=== PATIENT | male | born 1980 | race Caucasian/White ===

== ENCOUNTER 2019-11-09 08:43 | Inpatient (IN) | payer OTHER ==
--- NOTE | 2019-11-09 09:00 | HP ---
CIWA Score - Admission Criteria [facility] Guidelines: Admission for Medically Managed Detox: Requires at least one of the followin. CIWA greater than 12 2. Seizures within the past 24 hours 3. Delirium tremens within the past 24 hours 4. Hallucinations within the past 24 hours 5. Acute intervention needed for co occurring medical disorder 6. Acute intervention needed for co occurring psychiatric disorder 7. Severe withdrawal that cannot be handled at a lower level of care (continued vomiting, continued diarrhea, abnormal vital signs) requiring intravenous medication and/or fluids 8. Admitting History and Physical - Admission Chief Complaint: " I want to go to rehab." History of Present Illness: 39 year old male with history opioid dependence on [facility] O[facility] in [place] on methadone 100mg daily there. He is using Crack/cocaine smoking 1-2 grams daily but no other substances of abuse. He is seeking rehab services. He also smokes 1ppd ciggarettes since age 11 years old. He is homeless and has no support systems. He is not in the nursing home system because he was kicked out. He has [facility] still. He has poor judgment and poor support systems in place. He has also failed many other treatment inpatient in detox and rehab. PMH: None Psych: Depression and Anxiety and stopped taking wellbutrin and remeron non- compliant for 3 years. History Source: Patient Limitations to Obtaining History: No Limitations - Past Surgical History Past Surgical History: Yes: None - Smoking History Smoking history: Current every day smoker Have you smoked in the past 12 months: Yes Aproximately how many cigarettes per day: 20 - Alcohol/Substance Use Hx Alcohol Use: No - Social History Usual Living Arrangement: Yes: With Significant Other Do you think of yourself as: Straight/Heterosexual ADL: Independent Occupation: unemployed History of Recent Travel: No Admission ROS [facility] Allergies/Adverse Reactions: Allergies Allergy/AdvReac Type Severity Reaction Status Date / Time No Known Allergies Allergy Verified 05/08/18 15:36 Exam Limitations: No Limitations - Ebola screening Have you traveled outside of the country in the last 21 days: No Have you had contact with anyone from an Ebola affected area: No Have you been sick,other than usual withdrawal symptoms: No Do you have a fever: No - Review of Systems Constitutional: Unintentional Wgt. Loss EENT: reports: No Symptoms Reported Respiratory: reports: No Symptoms reported Cardiac: reports: No Symptoms Reported GI: reports: No Symptoms Reported : reports: No Symptoms Reported Musculoskeletal: reports: No Symptoms Reported Integumentary: reports: No Symptoms Reported Neuro: reports: No Symptoms reported Endocrine: reports: No Symptoms Reported Hematology: reports: No Symptoms Reported Psychiatric: reports: Judgement Intact, Mood/Affect Appropiate, Orientated x3, Anxious Other Systems: Reviewed and Negative Patient History - Patient Medical History Hx Anemia: No Hx Asthma: No Hx Chronic Obstructive Pulmonary Disease (COPD): No Hx Cancer: No Hx Cardiac Disorders: No Hx Congestive Heart Failure: No Hx Hypertension: No Hx Hypercholesterolemia: No Hx Pacemaker: No HX Cerebrovascular Accident: No Hx Seizures: No Hx Dementia: No Hx Diabetes: No Hx Gastrointestinal Disorders: No Hx Liver Disease: No Hx Genitourinary Disorders: No Hx Sexually Transmitted Disorders: No Hx Renal Disease (ESRD): No Hx Thyroid Disease: No Hx Human Immunodeficiency Virus (HIV): No Hx Hepatitis C: No Hx Depression: No Hx Suicide Attempt: No Hx Bipolar Disorder: No Hx Schizophrenia: No - Patient Surgical History Past Surgical History: No Hx Neurologic Surgery: No Hx Cataract Extraction: No Hx Cardiac Surgery: No Hx Lung Surgery: No Hx Breast Surgery: No Hx Breast Biopsy: No Hx Abdominal Surgery: No Hx Appendectomy: No Hx Cholecystectomy: No Hx Genitourinary Surgery: No Hx Orthopedic Surgery: No Anesthesia Reaction: No - PPD History Previous Implant?: Yes Documented Results: Negative w/proof Implanted On Prior [facility] Admission?: Yes Date: 05/10/18 Results: negative PPD to be Administered?: Yes - Smoking Cessation Smoking history: Current every day smoker Have you smoked in the past 12 months: Yes Aproximately how many cigarettes per day: 20 Hx Chewing Tobacco Use: No Initiated information on smoking cessation: Yes 'Breaking Loose' booklet given: 11/09/19 - Substances abused Crack Substance route: Smoking Frequency: Daily Amount used: 1-2 grams daily Age of first use: 11 Date of last use: 11/09/19 Admission Physical Exam [facility] - Physical General Appearance: Yes: Disheveled HEENTM: Yes: EOMI, Hearing grossly Normal, Normal ENT Inspection, Normocephalic , Normal Voice, DONITA, Pharynx Normal, Tm's normal Respiratory: Yes: Chest Non-Tender, Lungs Clear, Normal Breath Sounds, No Respiratory Distress, No Accessory Muscle Use Neck: Yes: No masses,lesions,Nodules, Supple, Trachea in good position Breast: Yes: Within Normal Limits Cardiology: Yes: Regular Rhythm, Regular Rate, S1, S2 Abdominal: Yes: Normal Bowel Sounds, Non Tender, Flat, Soft Genitourinary: Yes: Within Normal Limits Back: Yes: Normal Inspection Musculoskeletal: Yes: full range of Motion, Gait Steady, Pelvis Stable Extremities: Yes: Normal Capillary Refill, Normal Inspection, Normal Range of Motion, Non-Tender Neurological: Yes: financial institution manager II-XII NML intact, Fully Oriented, Alert, Motor Strength 5/5, Normal Mood/Affect, Normal Response Integumentary: Yes: Normal Color, Warm Lymphatic: Yes: Within Normal Limits - Diagnostic (1) Methadone use disorder, mild, on maintenance therapy Current Visit: Yes Status: Acute (2) Methadone maintenance therapy patient Current Visit: Yes Status: Acute (3) Cocaine dependence Current Visit: No Status: Chronic Qualifiers: Substance use status: uncomplicated Qualified Code(s): F14.20 - Cocaine dependence, uncomplicated (4) Nicotine dependence Current Visit: Yes Status: Chronic Qualifiers: Nicotine product type: cigarettes (5) Opioid dependence Current Visit: Yes Status: Chronic Qualifiers: Substance use status: uncomplicated Qualified Code(s): F11.20 - Opioid dependence, uncomplicated Cleared for Admission [facility] - Detox or Rehab [facility] Level of Care: Medically Supervised Detox Regimen/Protocol: Not Applicable Claeared for Rehab Admission: Yes Screened but not Admitted - Documentation of Visit Screened but not Admitted: No Inpatient Rehab Admission - Rehab Decision to Admit Inpatient rehab admission?: Yes - Initial Determination Are CD services needed?: Yes Free of communicable disease: Yes Not in need of hospitalization: Yes - Rehab Admission Criteria Previous failed treatment: Yes Poor recovery environment: Yes Comorbidities: Yes Lacks judgement: Yes Patient is meeting Inpatient Rehab admission criteria:: Yes
[2019-11-09] MEDS ORDERED: LOPERAMIDE HCL 2 MG CAPSULE PO PRN (09:05)
[2019-11-09] MEDS ORDERED: MENTHOL/PHENOL 1 EACH UD MM PRN (09:05)
[2019-11-09] MEDS ORDERED: MAGNESIUM HYDROX 2400MG/30ML ORAL SUSPENSION 30 ML CUP PO PRN (09:05)
[2019-11-09] MEDS ORDERED: guaiFENesin 200 MG/10 ML 10 ML UNIT-DOSE CUPS PO PRN (09:05)
[2019-11-09] MEDS ORDERED: IBUPROFEN 400 MG TABLET (FP) PO PRN (09:05)
[2019-11-09] MEDS ORDERED: MAGNESIUM CITRATE 300 ML BOTTLE PO PRN (09:05)
[2019-11-09] MEDS ORDERED: ACETAMINOPHEN 325 MG TABLET (FP) PO PRN (09:05)
[2019-11-09] MEDS ORDERED: MAG HYDROX/AL HYDROX/SIMETH 30 ML UNIT-DOSE CUP PO PRN (09:05)
[2019-11-09] MEDS ORDERED: P-EPHED 60MG/TRIPROLIDI 2.5MG TABLET PO PRN (09:05)
[2019-11-09 09:27] VITALS: BMI 25.0
[2019-11-09] MEDS ORDERED: METHADONE HCL 10 MG TABLET PO SCH (12:45)
[2019-11-09] MEDS ORDERED: METHADONE 80 MG, METHADONE 20 MG PO ONE (12:45)
[2019-11-09] MEDS ORDERED: TUBERCULIN PPD 5 TU/0.1ML VIAL ID ONE (12:49)
[2019-11-09] MEDS ORDERED: METHADONE HCL 40 MG DISPERSABLE TABLET ONE (12:50)
[2019-11-09] MEDS ORDERED: METHADONE HCL 10 MG TABLET ONE (12:50)
[2019-11-09] MEDS: NICOTINE 14 MG/24 HOURS TOPICAL PATCH TD SCH (12:53)
[2019-11-09] MEDS: PRENATAL VITAMINS W/ FOLIC ACID TABLET (FP) PO SCH (12:53)
[2019-11-09 14:54] LABS: HEMATOCRIT 39.9 % (35.4-49); HEMOGLOBIN 13.4 GM/dL (11.7-16.9); MCHC 33.7 g/dl (32.0-35.9); MEAN CELL VOLUME 91.8 fl (80-96); MEAN PLT VOLUME 7.9 fl (7.5-11.1); PLATELET COUNT 266 K/MM3 (134-434); RBC 4.34 M/mm3 (4.00-5.60); WHITE BLOOD COUNT 5.4 K/mm3 (4.0-10.0)
[2019-11-09 15:07] LABS: ALBUMIN 3.6 g/dl (3.4-5.0); BILIRUBIN,TOTAL 0.3 mg/dL (0.2-1); BLOOD UREA NITROGEN 22.1 mg/dL (7-18); CALCIUM 8.7 mg/dL (8.5-10.1); CREATININE 0.9 mg/dL (0.55-1.3); POTASSIUM 4.6 mmol/L (3.5-5.1); TOT PROT 6.7 g/dl (6.4-8.2)
[2019-11-09] MEDS: THIAMINE HCL 100 MG TABLET (FP) PO SCH (21:21)
[2019-11-09] MEDS ORDERED: MELATONIN 5 MG TABLETS PO PRN (22:00)
--- NOTE | 2019-11-09 23:20 | PN ---
S Progress Note Note: Pt is a 39 y/o male with a hx of VALENCIA-cocaine,heroin and on MMTP with 100 mg daily admitted to rehab through [facility] today. PMHx: Denies. Psych hx:Depression , Anxiety(non-compliant with meds-not current x 3yrs). Laboratory Tests 11/09/19 11/09/19 09:30 09:30 WBC 5.4 RBC 4.34 Hgb 13.4 Hct 39.9 MCV 91.8 MCH 31.0 MCHC 33.7 RDW 13.0 Plt Count 266 MPV 7.9 Sodium 139 Potassium 4.6 Chloride 108 H Carbon Dioxide 28 Anion Gap 4 L BUN 22.1 H Creatinine 0.9 Est GFR (CKD-EPI)AfAm 122.52 Est GFR (CKD-EPI)NonAf 105.71 Random Glucose 166 H Calcium 8.7 Total Bilirubin 0.3 AST 23 ALT 28 Alkaline Phosphatase 109 Total Protein 6.7 Albumin 3.6 Vital Signs - 24 hr 11/09/19 09:15 Temperature 97.6 F Pulse Rate 77 Respiratory 18 Rate Blood Pressure 138/73 Alert o x 3 nad oob ambulating with steady gait A/P new rehab pt VALENCIA Maintain safety increase po fluids cont rehab
[2019-11-10] MEDS ORDERED: METHADONE HCL 40 MG DISPERSABLE TABLET ONE (04:22)
[2019-11-10] MEDS ORDERED: METHADONE HCL 10 MG TABLET ONE (04:22)
[2019-11-10] MEDS ORDERED: METHADONE HCL 10 MG TABLET PO SCH (06:00)
[2019-11-10] MEDS: METHADONE 80 MG, METHADONE 20 MG PO SCH (06:49)
[2019-11-10] MEDS: PRENATAL VITAMINS W/ FOLIC ACID TABLET (FP) PO SCH (10:35)
[2019-11-10] MEDS: NICOTINE 14 MG/24 HOURS TOPICAL PATCH TD SCH (10:35)
[2019-11-10] MEDS: THIAMINE HCL 100 MG TABLET (FP) PO SCH (21:34)
[2019-11-11] MEDS ORDERED: METHADONE HCL 10 MG TABLET ONE (04:47)
[2019-11-11] MEDS ORDERED: METHADONE HCL 40 MG DISPERSABLE TABLET ONE (04:48)
[2019-11-11] MEDS: METHADONE 80 MG, METHADONE 20 MG PO SCH (06:36)
[2019-11-11 07:17] VITALS: BP 118/67; PULSE 56; TEMP 97.8
[2019-11-11] MEDS: PRENATAL VITAMINS W/ FOLIC ACID TABLET (FP) PO SCH (09:59)
[2019-11-11] MEDS: NICOTINE 14 MG/24 HOURS TOPICAL PATCH TD SCH (09:59)
--- NOTE | 2019-11-11 14:34 | PN ---
[facility] Progress Note Note: informed by VINNY Bae that patient would like to leave all attempts to convince patient to stay with no avail, high risk of relapsing explained,patient understood,signs release ama, left the unit in good and stable condition
--- NOTE | 2019-11-11 15:39 | DS ---
[facility] Rehab Discharge Summary - [facility] Rehab Discharge Summary Admission Date: 11/09/19 Discharge Date: 11/11/19 - History Present History: Cocaine dependence, MMTP Pertinent Past History: nicotine dependence mmtp - Discharge Physical Exam Vital Signs: Vital Signs Temperature 97.8 F 11/11/19 07:17 Pulse Rate 56 L 11/11/19 07:17 Respiratory Rate 16 11/11/19 07:17 Blood Pressure 118/67 11/11/19 07:17 O2 Sat by Pulse Oximetry (%) Pertinent Admission Physical Exam Findings: Vital Signs Temperature 97.8 F 11/11/19 07:17 Pulse Rate 56 L 11/11/19 07:17 Respiratory Rate 16 11/11/19 07:17 Blood Pressure 118/67 11/11/19 07:17 O2 Sat by Pulse Oximetry (%) Laboratory Last Values WBC 5.4 K/mm3 (4.0-10.0) 11/09/19 09:30 RBC 4.34 M/mm3 (4.00-5.60) 11/09/19 09:30 Hgb 13.4 GM/dL (11.7-16.9) 11/09/19 09:30 Hct 39.9 % (35.4-49) 11/09/19 09:30 MCV 91.8 fl (80-96) 11/09/19 09:30 MCH 31.0 pg (25.7-33.7) 11/09/19 09:30 MCHC 33.7 g/dl (32.0-35.9) 11/09/19 09:30 RDW 13.0 % (11.9-15.9) 11/09/19 09:30 Plt Count 266 K/MM3 (134-434) 11/09/19 09:30 MPV 7.9 fl (7.5-11.1) 11/09/19 09:30 Sodium 139 mmol/L (136-145) 11/09/19 09:30 Potassium 4.6 mmol/L (3.5-5.1) 11/09/19 09:30 Chloride 108 mmol/L (98-107) H 11/09/19 09:30 Carbon Dioxide 28 mmol/L (21-32) 11/09/19 09:30 Anion Gap 4 MMOL/L (8-16) L 11/09/19 09:30 BUN 22.1 mg/dL (7-18) H 11/09/19 09:30 Creatinine 0.9 mg/dL (0.55-1.3) 11/09/19 09:30 Est GFR (CKD-EPI)AfAm 122.52 11/09/19 09:30 Est GFR (CKD-EPI)NonAf 105.71 11/09/19 09:30 Random Glucose 166 mg/dL (74-106) H 11/09/19 09:30 Calcium 8.7 mg/dL (8.5-10.1) 11/09/19 09:30 Total Bilirubin 0.3 mg/dL (0.2-1) 11/09/19 09:30 AST 23 U/L (15-37) 11/09/19 09:30 ALT 28 U/L (13-61) 11/09/19 09:30 Alkaline Phosphatase 109 U/L (45-117) 11/09/19 09:30 Total Protein 6.7 g/dl (6.4-8.2) 11/09/19 09:30 Albumin 3.6 g/dl (3.4-5.0) 11/09/19 09:30 RPR Titer Nonreactive (NONREACTIVE) 11/09/19 09:30 - Treatment Discharge Condition: Discharge condition good Hospital Course: patient did not want to continue treatment,signed release ama alert,oriented x 3 ambulation without difficult no abdominal pain skin normal left unit in stable condition time spend for discharge 30 mins - Medication Discharge Medications: Ambulatory Orders NK [No Known Home Medication] 05/08/18 - Discharge Instructions Diet, activity, other medical instructions: Diet: Activity: Other medical instructions: - Diagnosis (1) Cocaine dependence Current Visit: No Status: Chronic Qualifiers: Substance use status: uncomplicated Qualified Code(s): F14.20 - Cocaine dependence, uncomplicated (2) Methadone use disorder, mild, on maintenance therapy Current Visit: Yes Status: Acute (3) Nicotine dependence Current Visit: Yes Status: Chronic Qualifiers: Nicotine product type: cigarettes - AMA Did Patient Leave Against Medical Advice: Yes
== END 2019-11-11 14:45 | disposition left against medical advice (07) | DRG 770 ==
LOC: YASAS 08:43 → Y5N 11:36
PROVIDERS: ADMIT Allergy & Immunology; ATTEND Allergy & Immunology
PROC: HZ42ZZZ Group Counseling for Substance Abuse Treatment, Cognitive-Behavioral (ICD-10-PCS; principal; 2019-11-09)
DX: F11.20 Opioid dependence, uncomplicated (principal); F14.20 Cocaine dependence, uncomplicated; F17.210 Nicotine dependence, cigarettes, uncomplicated; F41.9 Anxiety disorder, unspecified; F32.9 Major depressive disorder, single episode, unspecified; Z91.14 Patient's other noncompliance with medication regimen; Z59.0 Homelessness
CPT/HCPCS: 36415; 80053; 85027; 86593

== ENCOUNTER 2023-01-10 18:56 | Emergency (ER) | payer OTHER ==
[2023-01-10 19:17] VITALS: TEMP 97; BMI 28.1
[2023-01-10] MEDS ORDERED: SODIUM CHLORIDE 0.9% 500 ML INFUS.BAG IV ONE (19:44)
[2023-01-10] MEDS ORDERED: ONDANSETRON 4 MG/2 ML VIAL IVPUSH ONE (19:44)
[2023-01-10] MEDS ORDERED: BUPRENORPHINE HCL 2 MG TAB.SUBL SL ONE ×2 (19:45→20:53)
[2023-01-10] MEDS ORDERED: ONDANSETRON 4 MG/2 ML VIAL ONE (19:50)
[2023-01-10] MEDS ORDERED: BUPRENORPHINE/NALOXONE 2 MG/0.5 MG FILM PACKET ONE ×2 (19:50→21:01)
[2023-01-10 20:26] LABS: BASO % 0.4 % (0-2.0); EOS % 0.1 % (0-4.5); HEMATOCRIT 43.9 % (35.4-49); HEMOGLOBIN 15.1 GM/dL (11.7-16.9); LYMPH % 28.5 % (8-40); MCH 28.8 pg (25.7-33.7); MCHC 34.4 g/dl (32.0-35.9); MEAN CELL VOLUME 83.8 fl (80-96); MONO % 9.8 % (3.8-10.2); NEUT % 61.2 % (42.8-82.8); RBC 5.23 M/mm3 (4.00-5.60); WHITE BLOOD COUNT 8.9 K/mm3 (4.0-10.0)
[2023-01-10] MEDS ORDERED: PROCHLORPERAZINE INJECTION 10 MG/2 ML VIAL IVPB ONE (20:51)
[2023-01-10 20:52] LABS: CALCIUM 9.6 mg/dL (8.5-10.1)
[2023-01-10 20:53] LABS: ALBUMIN 3.6 g/dl (3.4-5.0); BLOOD UREA NITROGEN 13.8 mg/dL (7-18); MAGNESIUM 1.9 mg/dL (1.8-2.4)
[2023-01-10 20:54] LABS: MEAN PLT VOLUME 7.3 fl (7.5-11.1); PLATELET COUNT 398 10^3/uL (134-434)
[2023-01-10 20:55] LABS: CREATININE 0.8 mg/dL (0.55-1.3)
[2023-01-10 20:57] LABS: BILIRUBIN,TOTAL 0.4 mg/dL (0.2-1); TOT PROT 7.8 g/dl (6.4-8.2)
[2023-01-10] MEDS ORDERED: PROCHLORPERAZINE INJECTION 10 MG/2 ML VIAL ONE (21:01)
[2023-01-10 22:26] VITALS: BP 132/74; PULSE 90; RESP 18
== END 2023-01-10 23:26 | disposition home or self-care (01) ==
LOC: JER 18:56
PROC: 3E033GC Introduction of Other Therapeutic Substance into Peripheral Vein, Percutaneous Approach (ICD-10-PCS; principal; 2023-01-10)
PROC: 3E033GC Introduction of Other Therapeutic Substance into Peripheral Vein, Percutaneous Approach (ICD-10-PCS; 2023-01-10)
DX: F11.13 Opioid abuse with withdrawal (principal); R11.2 Nausea with vomiting, unspecified; R07.9 Chest pain, unspecified; R06.02 Shortness of breath; Z20.822 Contact with and (suspected) exposure to COVID-19
CPT/HCPCS: 36415; 71045-TC-FY; 74018-TC-FY; 80053; 83690; 83735; 84484; 85025; 93005; 93010; 99285-25; C9803-CS; U0003; U0005

== ENCOUNTER 2023-01-10 23:33 | Inpatient (IN) | payer OTHER ==
[2023-01-11 01:15] VITALS: BMI 23.6
[2023-01-11] MEDS ORDERED: guaiFENesin 600 MG TABLET.ER (FP) PO PRN (10:16)
[2023-01-11] MEDS ORDERED: LOPERAMIDE HCL 2 MG CAPSULE PO PRN (10:16)
[2023-01-11] MEDS ORDERED: BISMUTH SUBSALICYLATE 524 MG/30 ML PO PRN (10:16)
[2023-01-11] MEDS ORDERED: ACETAMINOPHEN 325 MG TABLET (FP) PO PRN (10:16)
[2023-01-11] MEDS ORDERED: ONDANSETRON *ODT* 4 MG TABLET SL PRN (10:16)
[2023-01-11] MEDS ORDERED: BENZOCAINE/MENTHOL (CHLORASEPTIC ) LOZENGE MM PRN (10:16)
[2023-01-11] MEDS ORDERED: NICOTINE 21 MG/24 HOURS TOPICAL PATCH TD PRN (10:16)
[2023-01-11] MEDS ORDERED: MAG HYDROX/AL HYDROX/SIMETH 30 ML UNIT-DOSE CUP PO PRN (10:16)
[2023-01-11] MEDS ORDERED: DICYCLOMINE HCL 10 MG CAPSULE PO PRN (10:16)
[2023-01-11] MEDS ORDERED: NICOTINE 10 MG CARTRIDGE (INHALER) IH PRN (10:16)
[2023-01-11] MEDS ORDERED: NALOXONE HCL 0.4 MG/ML VIAL IM PRN (10:16)
[2023-01-11] MEDS ORDERED: NALOXONE HCL (KLOXXADO) 8 MG SPRAY NS PRN (10:16)
[2023-01-11] MEDS ORDERED: MAGNESIUM HYDROX 2400MG/30ML ORAL SUSPENSION 30 ML CUP PO PRN (10:16)
[2023-01-11] MEDS ORDERED: BENZONATATE 200 MG CAPSULE PO PRN (10:16)
[2023-01-11] MEDS ORDERED: IBUPROFEN 400 MG TABLET (FP) PO PRN (10:16)
[2023-01-11] MEDS ORDERED: IBUPROFEN 600 MG TABLET (FP) PO PRN (10:16)
[2023-01-11] MEDS ORDERED: POLYETHYLENE GLYCOL (HEALTHYLAX) 3350 17 GM PACKET PO PRN (10:16)
[2023-01-11] MEDS ORDERED: NICOTINE POLACRILEX 4 MG GUM BUC PRN (10:16)
[2023-01-11] MEDS: cloNIDine HCL 0.1 MG TABLET PO PRN ×2 (10:57→22:20)
[2023-01-11] MEDS: diazePAM 5 MG TABLET PO PRN ×2 (10:58→15:01)
[2023-01-11] MEDS ORDERED: methaDONE HCL 10 MG TABLET (FOR DETOX USE ONLY) PO ONE (11:15)
[2023-01-11 13:30] LABS: HEMATOCRIT 41.1 % (35.4-49); HEMOGLOBIN 14.1 GM/dL (11.7-16.9); MCH 28.9 pg (25.7-33.7); MCHC 34.3 g/dl (32.0-35.9); MEAN CELL VOLUME 84.2 fl (80-96); MEAN PLT VOLUME 7.4 fl (7.5-11.1); PLATELET COUNT 350 10^3/uL (134-434); RBC 4.88 M/mm3 (4.00-5.60); RDW 15.1 % (11.9-15.9); WHITE BLOOD COUNT 7.1 K/mm3 (4.0-10.0)
[2023-01-11 13:33] LABS: CALCIUM 9.1 mg/dL (8.5-10.1)
[2023-01-11 13:34] LABS: ALBUMIN 3.2 g/dl (3.4-5.0)
[2023-01-11 13:37] LABS: CREATININE 0.8 mg/dL (0.55-1.3)
[2023-01-11 13:39] LABS: BILIRUBIN,TOTAL 0.3 mg/dL (0.2-1); TOT PROT 7.1 g/dl (6.4-8.2)
[2023-01-11] MEDS: diazePAM 5 MG TABLET PO SCH ×2 (17:35→22:20)
[2023-01-11] MEDS: MELATONIN 5 MG TABLETS PO SCH (22:20)
[2023-01-11] MEDS: hydrOXYzine PAMOATE 25 MG CAPSULE (FP) PO PRN (22:20)
[2023-01-11] MEDS: THIAMINE HCL 100 MG TABLET (FP) PO SCH (22:20)
[2023-01-12] MEDS: diazePAM 5 MG TABLET PO SCH ×4 (05:16→22:13)
[2023-01-12] MEDS: METHOCARBAMOL 500 MG TABLET PO PRN ×2 (10:06→22:13)
[2023-01-12] MEDS: PRENATAL VITAMINS W/ FOLIC ACID TABLET (FP) PO SCH (10:06)
[2023-01-12] MEDS: hydrOXYzine PAMOATE 25 MG CAPSULE (FP) PO PRN ×2 (10:06→18:21)
[2023-01-12] MEDS: cloNIDine HCL 0.1 MG TABLET PO PRN ×3 (13:07→22:14)
[2023-01-12] MEDS: diazePAM 5 MG TABLET PO PRN (13:08)
[2023-01-12] MEDS: THIAMINE HCL 100 MG TABLET (FP) PO SCH (22:13)
[2023-01-12] MEDS: MELATONIN 5 MG TABLETS PO SCH (22:13)
[2023-01-13] MEDS: diazePAM 5 MG TABLET PO SCH ×3 (05:29→22:25)
[2023-01-13] MEDS ORDERED: methaDONE HCL 10 MG TABLET (FOR DETOX USE ONLY) PO ONE (10:00)
[2023-01-13] MEDS: cloNIDine HCL 0.1 MG TABLET PO PRN ×2 (10:22→19:07)
[2023-01-13] MEDS: PRENATAL VITAMINS W/ FOLIC ACID TABLET (FP) PO SCH (10:22)
[2023-01-13] MEDS: diazePAM 5 MG TABLET PO PRN (10:23)
[2023-01-13] MEDS: THIAMINE HCL 100 MG TABLET (FP) PO SCH (22:25)
[2023-01-13] MEDS: MELATONIN 5 MG TABLETS PO SCH (22:25)
[2023-01-14] MEDS: diazePAM 5 MG TABLET PO SCH ×2 (05:10→17:39)
[2023-01-14] MEDS: PRENATAL VITAMINS W/ FOLIC ACID TABLET (FP) PO SCH (10:09)
[2023-01-14] MEDS: diazePAM 5 MG TABLET PO PRN (10:10)
[2023-01-14] MEDS: METHOCARBAMOL 500 MG TABLET PO PRN ×2 (10:11→17:39)
[2023-01-14] MEDS: hydrOXYzine PAMOATE 25 MG CAPSULE (FP) PO PRN ×2 (10:11→17:39)
[2023-01-14] MEDS: THIAMINE HCL 100 MG TABLET (FP) PO SCH (22:15)
[2023-01-14] MEDS: MELATONIN 5 MG TABLETS PO SCH (22:15)
[2023-01-15] MEDS ORDERED: diazePAM 5 MG TABLET PO ONE (06:00)
[2023-01-15] MEDS ORDERED: methaDONE HCL 10 MG TABLET (FOR DETOX USE ONLY) PO ONE (10:00)
[2023-01-15] MEDS: PRENATAL VITAMINS W/ FOLIC ACID TABLET (FP) PO SCH (10:06)
[2023-01-15] MEDS: hydrOXYzine PAMOATE 25 MG CAPSULE (FP) PO PRN (15:08)
[2023-01-15] MEDS: METHOCARBAMOL 500 MG TABLET PO PRN (15:08)
[2023-01-15] MEDS: MELATONIN 5 MG TABLETS PO SCH (22:52)
[2023-01-15] MEDS: THIAMINE HCL 100 MG TABLET (FP) PO SCH (22:52)
[2023-01-16 09:13] VITALS: BP 143/87; PULSE 101; RESP 20; TEMP 97.8
[2023-01-16] MEDS: PRENATAL VITAMINS W/ FOLIC ACID TABLET (FP) PO SCH (11:02)
== END 2023-01-16 09:57 | disposition home or self-care (01) | DRG 773 ==
LOC: YASAS 23:33 → Y6N 01-11 10:50
PROVIDERS: ADMIT Allergy & Immunology; ATTEND Surgery
PROC: HZ2ZZZZ Detoxification Services for Substance Abuse Treatment (ICD-10-PCS; principal; 2023-01-11)
DX: F11.23 Opioid dependence with withdrawal (principal); F10.230 Alcohol dependence with withdrawal, uncomplicated; F14.20 Cocaine dependence, uncomplicated; F17.210 Nicotine dependence, cigarettes, uncomplicated; B18.2 Chronic viral hepatitis C
CPT/HCPCS: 36415; 80053; 85027; 86780; 87811; C9803-CS; U0003; U0005

== ENCOUNTER 2023-09-09 12:34 | Inpatient (IN) | payer OTHER ==
[2023-09-09 12:55] VITALS: BMI 25.9
[2023-09-09] MEDS ORDERED: LIDOCAINE VISCOUS 2% ORAL/TOP 15 ML UNIT-DOSE CUP MM PRN (14:30)
[2023-09-09] MEDS ORDERED: diazePAM 5 MG TABLET PO PRN (14:32)
[2023-09-09] MEDS ORDERED: ACETAMINOPHEN 325 MG TABLET (FP) PO PRN (14:33)
[2023-09-09] MEDS ORDERED: NALOXONE HCL (KLOXXADO) 8 MG SPRAY NS PRN (14:33)
[2023-09-09] MEDS ORDERED: BISMUTH SUBSALICYLATE 524 MG/30 ML PO PRN (14:33)
[2023-09-09] MEDS ORDERED: MAGNESIUM HYDROX 2400MG/30ML ORAL SUSPENSION 30 ML CUP PO PRN (14:33)
[2023-09-09] MEDS ORDERED: P-EPHED 60MG/TRIPROLIDI 2.5MG TABLET PO PRN (14:33)
[2023-09-09] MEDS ORDERED: BENZONATATE 200 MG CAPSULE PO PRN (14:33)
[2023-09-09] MEDS ORDERED: guaiFENesin 600 MG TABLET.ER (FP) PO PRN (14:33)
[2023-09-09] MEDS ORDERED: DICYCLOMINE HCL 10 MG CAPSULE PO PRN (14:33)
[2023-09-09] MEDS ORDERED: BENZOCAINE/MENTHOL (CHLORASEPTIC ) LOZENGE MM PRN (14:33)
[2023-09-09] MEDS ORDERED: IBUPROFEN 400 MG TABLET (FP) PO PRN (14:33)
[2023-09-09] MEDS ORDERED: POLYETHYLENE GLYCOL (HEALTHYLAX) 3350 17 GM PACKET PO PRN (14:33)
[2023-09-09] MEDS ORDERED: LOPERAMIDE HCL 2 MG CAPSULE PO PRN (14:33)
[2023-09-09] MEDS ORDERED: NALOXONE HCL 0.4 MG/ML VIAL IM PRN (14:33)
[2023-09-09] MEDS ORDERED: MAG HYDROX/AL HYDROX/SIMETH 30 ML UNIT-DOSE CUP PO PRN (14:33)
[2023-09-09] MEDS ORDERED: IBUPROFEN 600 MG TABLET (FP) PO PRN (14:33)
[2023-09-09] MEDS ORDERED: valACYclovir HCL 500 MG TABLET (FP) PO ONE ×2 (14:47→18:00)
[2023-09-09] MEDS: diazePAM 5 MG TABLET PO SCH ×2 (16:12→22:33)
[2023-09-09] MEDS ORDERED: diazePAM 5 MG TABLET ONE (16:19)
[2023-09-09] MEDS: VITAMINS A AND D TOPICAL OINTMENT 60 GM TUBE TP SCH (17:54)
[2023-09-09] MEDS: METHOCARBAMOL 500 MG TABLET PO PRN (22:33)
[2023-09-09] MEDS: MELATONIN 5 MG TABLETS PO SCH (22:33)
[2023-09-09] MEDS: THIAMINE HCL 100 MG TABLET (FP) PO SCH (22:33)
[2023-09-09] MEDS: NICOTINE POLACRILEX 2 MG GUM BUC PRN (22:33)
[2023-09-10] MEDS: VITAMINS A AND D TOPICAL OINTMENT 60 GM TUBE TP SCH ×4 (00:41→18:14)
[2023-09-10] MEDS: diazePAM 5 MG TABLET PO SCH ×2 (06:11→10:09)
[2023-09-10] MEDS: PRENATAL VITAMINS W/ FOLIC ACID TABLET (FP) PO SCH (10:09)
[2023-09-10] MEDS: valACYclovir HCL 500 MG TABLET (FP) PO SCH ×2 (10:09→22:28)
[2023-09-10] MEDS ORDERED: LORazepam 1 MG TABLET PO PRN (10:52)
[2023-09-10 12:45] LABS: CHLORIDE 105 mmol/L (98-107); POTASSIUM 3.9 mmol/L (3.5-5.1); SODIUM 139 mmol/L (136-145)
[2023-09-10 12:49] LABS: CALCIUM 8.4 mg/dL (8.5-10.1)
[2023-09-10 12:50] LABS: ALBUMIN 3.3 g/dl (3.4-5.0); ANION GAP 5 mmol/L (4-13); BLOOD UREA NITROGEN 16.8 mg/dL (7-18); CO2 28 mmol/L (21-32); GLUCOSE,RANDOM 174 mg/dL (74-106)
[2023-09-10 12:52] LABS: SGPT/ALT 59 U/L (13-61)
[2023-09-10 12:53] LABS: BILIRUBIN,TOTAL 0.7 mg/dL (0.2-1); CREATININE 0.8 mg/dL (0.55-1.3); SGOT/AST 62 U/L (15-37); TOT PROT 6.5 g/dl (6.4-8.2)
[2023-09-10 12:54] LABS: ALK PHOS 88 U/L (45-117)
[2023-09-10 13:03] LABS: HEMATOCRIT 40.2 % (35.4-49); HEMOGLOBIN 13.6 GM/dL (11.7-16.9); MCH 28.6 pg (25.7-33.7); MCHC 33.8 g/dl (32.0-35.9); MEAN CELL VOLUME 84.6 fl (80-96); MEAN PLT VOLUME 8.1 fl (7.5-11.1); PLATELET COUNT 218 10^3/uL (134-434); RBC 4.75 M/mm3 (4.00-5.60); RDW 15.1 % (11.9-15.9); WHITE BLOOD COUNT 5.2 K/mm3 (4.0-10.0)
[2023-09-10 13:53] LABS: HIV INTERPRETATION NEGATIVE (NEGATIVE)
[2023-09-10] MEDS ORDERED: methaDONE HCL 10 MG TABLET PO ONE (14:30)
[2023-09-10] MEDS: LORazepam 2 MG TABLET PO SCH ×2 (17:25→22:29)
[2023-09-10] MEDS: MELATONIN 5 MG TABLETS PO SCH (22:29)
[2023-09-10] MEDS: THIAMINE HCL 100 MG TABLET (FP) PO SCH (22:29)
[2023-09-11] MEDS: VITAMINS A AND D TOPICAL OINTMENT 60 GM TUBE TP SCH ×5 (00:03→23:05)
[2023-09-11] MEDS: LORazepam 1 MG TABLET PO SCH ×4 (05:17→22:14)
[2023-09-11] MEDS ORDERED: diazePAM 5 MG TABLET PO SCH (06:00)
[2023-09-11] MEDS ORDERED: methaDONE HCL 10 MG TABLET PO ONE (08:26)
[2023-09-11] MEDS: valACYclovir HCL 500 MG TABLET (FP) PO SCH ×2 (10:19→22:14)
[2023-09-11] MEDS: PRENATAL VITAMINS W/ FOLIC ACID TABLET (FP) PO SCH (10:19)
[2023-09-11] MEDS: THIAMINE HCL 100 MG TABLET (FP) PO SCH (22:14)
[2023-09-11] MEDS: MELATONIN 5 MG TABLETS PO SCH (22:14)
[2023-09-12] MEDS: LORazepam 0.5 MG TABLET PO SCH ×4 (05:50→22:15)
[2023-09-12] MEDS: VITAMINS A AND D TOPICAL OINTMENT 60 GM TUBE TP SCH ×3 (05:50→17:32)
[2023-09-12] MEDS ORDERED: diazePAM 5 MG TABLET PO SCH (06:00)
[2023-09-12] MEDS: valACYclovir HCL 500 MG TABLET (FP) PO SCH ×2 (10:03→22:15)
[2023-09-12] MEDS: PRENATAL VITAMINS W/ FOLIC ACID TABLET (FP) PO SCH (10:03)
[2023-09-12] MEDS ORDERED: methaDONE 40 MG, methaDONE 20 MG PO ONE (10:45)
[2023-09-12] MEDS: NICOTINE POLACRILEX 2 MG GUM BUC PRN (11:03)
[2023-09-12] MEDS: METHOCARBAMOL 500 MG TABLET PO PRN (22:13)
[2023-09-12] MEDS: THIAMINE HCL 100 MG TABLET (FP) PO SCH (22:13)
[2023-09-12] MEDS: MELATONIN 5 MG TABLETS PO SCH (22:13)
[2023-09-13] MEDS ORDERED: LORazepam 0.5 MG TABLET PO PRN
[2023-09-13] MEDS: VITAMINS A AND D TOPICAL OINTMENT 60 GM TUBE TP SCH ×2 (01:58→05:47)
[2023-09-13] MEDS ORDERED: LORazepam 0.5 MG TABLET PO ONE (05:00)
[2023-09-13] MEDS ORDERED: methaDONE 40 MG, methaDONE 30 MG PO ONE (06:00)
[2023-09-13] MEDS ORDERED: diazePAM 5 MG TABLET PO ONE (06:00)
[2023-09-13 09:59] VITALS: BP 116/72; PULSE 68; RESP 18; TEMP 98.7
[2023-09-13] MEDS: NICOTINE POLACRILEX 2 MG GUM BUC PRN (10:41)
[2023-09-13] MEDS: valACYclovir HCL 500 MG TABLET (FP) PO SCH (10:49)
[2023-09-13] MEDS: PRENATAL VITAMINS W/ FOLIC ACID TABLET (FP) PO SCH (10:49)
[2023-09-14] MEDS ORDERED: methaDONE HCL 40 MG DISPERSABLE TABLET PO ONE (06:00)
[2023-09-15] MEDS ORDERED: methaDONE 80 MG, methaDONE 10 MG PO SCH (06:00)
== END 2023-09-13 10:56 | disposition home or self-care (01) | DRG 773 ==
LOC: YASAS 12:34 → Y3N 15:23
PROVIDERS: ADMIT Allergy & Immunology; ATTEND Surgery
PROC: HZ2ZZZZ Detoxification Services for Substance Abuse Treatment (ICD-10-PCS; principal; 2023-09-09)
DX: F10.230 Alcohol dependence with withdrawal, uncomplicated (principal); F11.20 Opioid dependence, uncomplicated; F14.20 Cocaine dependence, uncomplicated; F17.210 Nicotine dependence, cigarettes, uncomplicated; Z86.19 Personal history of other infectious and parasitic diseases
CPT/HCPCS: 36415; 80053; 80307; 85027; 86780; 87389; 87635